=== PATIENT | male | born 1955 | race Hispanic/Latino ===

== ENCOUNTER 2018-08-07 18:35 | Emergency (ER) | payer OTHER, MEDICARE ==
[~2018-08-07 18:35] MED LIST: CLON0.5T12 PO; GEMF600T5 PO; GLYB-228 PO; HYDR-4457 PO; LISI40TA4 PO; OMEGA PO; PREG75 PO; ROSU5TAB PO; [UNRECOGNIZED DRUG - OTHER] PO
[2018-08-07 18:53] LABS: BASOPHILS % (AUTO) 0.3 % (0.0-5.0); EOSINOPHILS % (AUTO) 0.5 % (0.0-8.0); HEMATOCRIT 36.9 % (42-54); LYMPHOCYTES % (AUTO) 10.6 % (21.0-51.0); MEAN CORPUSCULAR HEMOGLOBIN 29.8 pg (27.0-33.0); MEAN CORPUSCULAR VOLUME 87.6 fL (79-99); MONOCYTES % (AUTO) 7.1 % (3.0-13.0); NEUTROPHILS % (AUTO) 81.5 % (40.0-77.0); PLATELET COUNT (AUTO) 188 K/uL (130-400); RED BLOOD CELL COUNT(AUTO) 4.21 MIL/uL (4.50-6.20); RED CELL DISTRIBUTION WIDTH 12.9 % (11.0-15.5); WHITE BLOOD COUNT (AUTO) 7.1 K/uL (4.8-10.8)
[2018-08-07] MEDS ORDERED: SODIUM CHLORIDE 0.9% 1000ML 1,000 ML IV ONE (18:59)
[2018-08-07] MEDS ORDERED: ONDANSETRON HCL 4 MG/2 ML VIAL ONE (19:00)
[2018-08-07] MEDS ORDERED: ACETAMINOPHEN EXTRA STRENGTH 500 MG TABLET ONE (19:01)
[2018-08-07 19:05] LABS: CARBON DIOXIDE 23 mmol/L (21-32); CHLORIDE 104 mmol/L (101-111); CREATININE 0.9 mg/dL (0.5-1.5); GLOMERULAR FILTR. RATE CALC 91 mL/min (>60); GLUCOSE,RANDOM 187 mg/dL (70-105); POTASSIUM 3.5 mmol/L (3.5-5.1); SODIUM SERUM 139 mmol/L (136-145); UREA NITROGEN, BLOOD 15 mg/dL (7-18)
[2018-08-07 19:14] LABS: INR 1.03 (0.85-1.15); PARTIAL THROMBOPLASTIN TIME 29.9 SEC (26.3-35.5); PROTHROMBIN TIME 10.8 SEC (9.6-11.6)
[2018-08-07 19:16] LABS: ALANINE AMINOTRANSFERASE 22 U/L (12-78); ALBUMIN 3.4 g/dL (3.5-5.0); ASPARTATE AMINOTRANSFERASE 16 U/L (10-37); BILIRUBIN,TOTAL 0.4 mg/dL (0.2-1.0); CREATINE KINASE, TOTAL 10 U/L (21-232); MYOGLOBIN 25 ng/mL (10-92); TOTAL PROTEIN, SERUM 6.8 g/dL (6.0-8.3); TROPONIN I < 0.04 ng/mL (0.00-0.06)
[2018-08-07 19:33] LABS: APPEARANCE,URINE Clear (CLEAR); BILIRUBIN,URINE Negative (NEGATIVE); COLOR,URINE Yellow (YELLOW); GLUCOSE, URINE (UA) TRACE mg/dL (NEGATIVE); KETONES,URINE Negative (NEGATIVE); LEUKOCYTE ESTERASE ,URINE Negative (NEGATIVE); NITRATE,URINE Negative (NEGATIVE); OCCULT BLOOD,URINE Negative (NEGATIVE); PROTEIN,URINE Negative (NEGATIVE); UROBILINOGEN,URINE 0.2 mg/dL (0.2-1.0)
[2018-08-07 19:48] LABS: BACTERIA,URINE None Seen /HPF (None Seen); RBC,URINE None Seen /HPF (0-1); SQUAMOUS EPITHELIAL CELL,UR None Seen /HPF (0-2); WBC,URINE 0-1 /HPF (0-1)
== END 2018-08-07 22:20 | disposition home or self-care (01) ==
LOC: EDH 18:35
DX: R50.9 Fever, unspecified (principal); K02.9 Dental caries, unspecified; I10 Essential (primary) hypertension; E78.5 Hyperlipidemia, unspecified; E11.9 Type 2 diabetes mellitus without complications
CPT/HCPCS: 36415; 71045; 80053; 81001; 82550; 83605; 83874; 84484; 85025; 85610; 85730; 87040 ×2; 87088; 87804 ×2; 93005; 96374; 96375; 99285; J2405; J7030

== ENCOUNTER 2019-01-18 06:56 | Day surgery (SDC) | payer OTHER, MEDICARE ==
[2019-01-17 15:33] VITALS: BP 165/73
--- NOTE | 2019-01-17 16:03 | NUR ---
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 OFFERED A BIOMETRICIAN. DID NOT WANT ONE. DAUGHTER IN LAW SIGNS AND WILL BE HERE DOS WHO ALSO SIGNS.
[~2019-01-18] VITALS: Ht 177.8 cm; Wt 91.2 kg
[2019-01-18] VITALS (16 sets, daily range): BP systolic 142–168; BP diastolic 52–82
[2019-01-18] MEDS: CEFAZOLIN SODIUM 1 GM VIAL IVP SCH ×2 (06:00→09:45)
[~2019-01-18 06:56] MED LIST changes: +ATOR10TA69 PO; -CLON0.5T12 PO; +CLON0.5T4 PO; -GLYB-228 PO; +GLYB1TAB32 PO; +HYDR-4064 PO; -HYDR-4457 PO; -OMEGA PO; -ROSU5TAB PO; +TRAM50TA4 PO; -[UNRECOGNIZED DRUG - OTHER] PO
[2019-01-18] MEDS ORDERED: SODIUM CHLORIDE 0.9% 1000ML 1,000 ML IV ONE (07:59)
[2019-01-18] MEDS ORDERED: EPINEPHRINE 1 MG/ML 30ML VIAL IJ ONE (08:03)
[2019-01-18] MEDS ORDERED: ONDANSETRON HCL 4 MG/2 ML VIAL ONE (08:44)
[2019-01-18] MEDS ORDERED: LIDOCAINE PF 2% 5ML ABBOJECT ONE (08:44)
[2019-01-18] MEDS ORDERED: MIDAZOLAM HCL 1 MG/ML 2ML VIAL ONE (08:45)
[2019-01-18] MEDS ORDERED: FENTANYL CITRATE PF 50 MCG/1 ML 2ML VIAL ONE (08:45)
[2019-01-18] MEDS ORDERED: ROCURONIUM 10MG/1ML SYR 10 MG/ML ML ONE ×2 (08:45→10:13)
[2019-01-18] MEDS ORDERED: PROPOFOL 10 MG/ML 20ML VIAL IV ONE (08:45)
[2019-01-18] MEDS ORDERED: ROPIVACAINE 0.5% 5MG/ML 30ML IJ ONE (08:48)
[2019-01-18] MEDS ORDERED: EPHEDRINE SULFATE 50 MG/ML AMPULE ONE (10:13)
[2019-01-18] MEDS ORDERED: LIDOCAINE HCL 4% LTA SOL 4 ML VIAL ONE (12:38)
[2019-01-18] MEDS ORDERED: CEPH500B PO (12:53)
[2019-01-18] MEDS ORDERED: HYDR-4457 PO (12:53)
[2019-01-18] MEDS ORDERED: MELO-108 PO (12:53)
[2019-01-18] MEDS ORDERED: HYDRALAZINE HCL 20 MG/ML VIAL ONE (13:32)
--- NOTE | 2019-01-18 15:00 | NUR ---
PT LEFT VIA WHEELCHAIR WITH , RX SCRIPT GIVEN TO ALONG WITH D/C INSTRUCTION AND F/U APPT. PT HAD ARM SLING ON AND DRESSING WAS DRY AND INTACT, RADIAL PULSES PRESENT. NO COMPLICATION UPON D/C
== END 2019-01-18 15:00 | disposition home or self-care (01) ==
LOC: DAH 06:56 → EDSTATUS 15:00 → DAH 15:00
PROVIDERS: ATTEND Orthopaedic Surgery
DX: M75.111 Incomplete rotator cuff tear or rupture of right shoulder, not specified as traumatic (principal); M25.511 Pain in right shoulder; G89.29 Other chronic pain; M19.011 Primary osteoarthritis, right shoulder; Z79.899 Other long term (current) drug therapy; E11.9 Type 2 diabetes mellitus without complications; I10 Essential (primary) hypertension; E78.00 Pure hypercholesterolemia, unspecified; M17.0 Bilateral primary osteoarthritis of knee; M16.10 Unilateral primary osteoarthritis, unspecified hip; Z83.3 Family history of diabetes mellitus; Z82.49 Family history of ischemic heart disease and other diseases of the circulatory system
CPT/HCPCS: 29824; 29826; 29827; 29828; 64415; 76942; 82948 ×2; A4215; A4221; A4222; A4223; A4565; A4600; A4649 ×6; A4663; A4930; A5120; A6204; C1713 ×3; G0168; J0171; J0360; J0690; J2001; J2250; J2405; J2704; J2795; J3010; J3490; J7030 ×2

== ENCOUNTER → 2020-03-26 | Outpatient (CLI) | payer OTHER ==
[~2020-03-26] MED LIST changes: +CEPH500B PO; +GADODIAMIDE 10 MMOL/20 ML VIAL IV ONE; -GEMF600T5 PO; +GEMF600T89 PO; -HYDR-4064 PO; +HYDR-4457 PO; -LISI40TA4 PO; +LISI40TA9 PO; +MELO-108 PO
== END | disposition home or self-care (01) ==
LOC: RAH 14:47
PROVIDERS: ATTEND Otolaryngology Plastic Surgery within the Head & Neck
DX: H90.3 Sensorineural hearing loss, bilateral (principal); H93.19 Tinnitus, unspecified ear
CPT/HCPCS: 70553; A9579

== ENCOUNTER → 2020-07-09 | Outpatient (CLI) | payer OTHER ==
[~2020-07-09] MED LIST changes: -GADODIAMIDE 10 MMOL/20 ML VIAL IV ONE
== END | disposition home or self-care (01) ==
LOC: RAH 12:56
PROVIDERS: ATTEND Orthopaedic Surgery
DX: S83.241A Other tear of medial meniscus, current injury, right knee, initial encounter (principal); M23.91 Unspecified internal derangement of right knee; M22.41 Chondromalacia patellae, right knee; M22.42 Chondromalacia patellae, left knee; M16.0 Bilateral primary osteoarthritis of hip; M70.61 Trochanteric bursitis, right hip; M67.952 Unspecified disorder of synovium and tendon, left thigh; M25.511 Pain in right shoulder; M75.101 Unspecified rotator cuff tear or rupture of right shoulder, not specified as traumatic; M75.121 Complete rotator cuff tear or rupture of right shoulder, not specified as traumatic; M19.011 Primary osteoarthritis, right shoulder; G89.18 Other acute postprocedural pain; M76.51 Patellar tendinitis, right knee; Z98.890 Other specified postprocedural states; Z79.899 Other long term (current) drug therapy; X58.XXXA Exposure to other specified factors, initial encounter; Y93.89 Activity, other specified; Y92.89 Other specified places as the place of occurrence of the external cause; Y99.8 Other external cause status
CPT/HCPCS: 73721

== ENCOUNTER 2020-08-21 06:25 | Day surgery (SDC) | payer OTHER ==
[2020-08-15 13:13] LABS: BASOPHILS % (AUTO) 0.9 % (0.0-5.0); EOSINOPHILS % (AUTO) 4.2 % (0.0-8.0); HEMATOCRIT 44.4 % (42-54); LYMPHOCYTES % (AUTO) 30.3 % (21.0-51.0); MEAN CORPUSCULAR HEMOGLOBIN 29.5 pg (27.0-33.0); MEAN CORPUSCULAR HGB CONC 32.7 g/dL (32.0-36.0); MEAN CORPUSCULAR VOLUME 90.4 fL (79-99); MONOCYTES % (AUTO) 7.3 % (3.0-13.0); PLATELET COUNT (AUTO) 296 K/uL (130-400); RED BLOOD CELL COUNT(AUTO) 4.91 MIL/uL (4.50-6.20); RED CELL DISTRIBUTION WIDTH 12.9 % (11.0-15.5); WHITE BLOOD COUNT (AUTO) 6.5 K/uL (4.8-10.8)
[2020-08-15 13:27] LABS: CREATININE 0.9 mg/dL (0.5-1.5); POTASSIUM 4.4 mmol/L (3.5-5.1)
[2020-08-20 16:10] VITALS: BP 164/60
[~2020-08-21] VITALS: Ht 177.8 cm; Wt 90.7 kg
[2020-08-21] VITALS (15 sets, daily range): BP systolic 129–149; BP diastolic 60–75
[~2020-08-21 06:25] MED LIST changes: -CEPH500B PO; -CLON0.5T4 PO; -HYDR-4457 PO; -MELO-108 PO; -TRAM50TA4 PO
[2020-08-21] MEDS ORDERED: CEFAZOLIN SODIUM 1 GM VIAL ONE (07:11)
[2020-08-21] MEDS ORDERED: LIDOCAINE PF 100MG/5ML (2%) SYRINGE 5ML ONE ×2 (07:58→08:00)
[2020-08-21] MEDS ORDERED: SUCCINYLCHOLINE CHLORIDE 20 MG/ML 10 ML VIAL ONE ×2 (07:58→08:00)
[2020-08-21] MEDS ORDERED: GLYCOPYRROLATE 1 MG/5 ML SYRINGE ONE (07:59)
[2020-08-21] MEDS ORDERED: DEXAMETHASONE SOD PHOSPHATE 10MG/ML 1ML VIAL ONE (07:59)
[2020-08-21] MEDS ORDERED: NEOSTIGMINE 5MG/5ML SYR IV ONE (07:59)
[2020-08-21] MEDS ORDERED: ONDANSETRON 4MG INJ ONE (07:59)
[2020-08-21] MEDS ORDERED: MIDAZOLAM HCL 1 MG/ML 2ML VIAL ONE (07:59)
[2020-08-21] MEDS ORDERED: PROPOFOL 10 MG/ML 20ML VIAL IV ONE (07:59)
[2020-08-21] MEDS ORDERED: FENTANYL CITRATE PF 50 MCG/1 ML 2ML VIAL ONE ×2 (08:00→08:50)
[2020-08-21] MEDS ORDERED: ROCURONIUM 10MG/1ML SYR 10 MG/ML ML ONE (08:00)
[2020-08-21] MEDS ORDERED: CEFAZOLIN SODIUM 1 GM VIAL IVP ONE (08:23)
[2020-08-21] MEDS ORDERED: MEPERIDINE-PF 25 MG/ML SYG ONE ×2 (08:40→10:06)
[2020-08-21] MEDS: NACL 0.9% 1000ML 1,000 ML IV ONE ×2 (08:48→09:42)
[2020-08-21] MEDS ORDERED: ACET1TAB25 PO (09:50)
[2020-08-21] MEDS ORDERED: CEPH500B PO (09:50)
== END 2020-08-21 11:20 | disposition home or self-care (01) ==
LOC: DAH 06:25
PROVIDERS: ATTEND Orthopaedic Surgery
DX: M23.351 Other meniscus derangements, posterior horn of lateral meniscus, right knee (principal); Z20.822 Contact with and (suspected) exposure to COVID-19; M23.321 Other meniscus derangements, posterior horn of medial meniscus, right knee; M22.41 Chondromalacia patellae, right knee; I10 Essential (primary) hypertension; E11.9 Type 2 diabetes mellitus without complications; M19.90 Unspecified osteoarthritis, unspecified site; E78.00 Pure hypercholesterolemia, unspecified; Z98.890 Other specified postprocedural states; Z79.899 Other long term (current) drug therapy
CPT/HCPCS: 29881; 29882; 36415; 80048; 82948; 85025; 87635; A4215; A4221; A4222; A4223; A4606; A4649 ×3; A4663; A4930 ×2; A5120; A6223; C1713; C9803; J0330 ×2; J0690 ×2; J1100; J2001 ×2; J2175 ×2; J2250; J2405; J2704; J2710; J3010 ×2; J3490; J7030; J7120

== ENCOUNTER → 2024-04-28 | Outpatient (CLI) | payer MEDICARE ==
[~2024-04-28] MED LIST changes: +AEC81 PO; -ATOR10TA69 PO; +ATOR40TA69 PO; +CYCL5TAB3 PO; +GLYB-173 PO; -GLYB1TAB32 PO; +Isosorbide Mono 60MG Sr Tab PO; +METO25 PO; +NIFE-40 PO; +PANT20TA18 PO; +TICA90TA PO
--- NOTE | 2024-05-04 23:35 | HMCSR ---
APPROVED REPORT EXAM: Two-dimensional and M-mode echocardiogram with Doppler and color Doppler. INDICATION ICD: I25.10 Atherosclerotic heart disease of [place] coronary artery without angina pectoris 2D Dimensions RVDd3.9 cmLVEF(%)55.7 (>50%)LVED Vol(simp.)128.0 mL IVSd1.2 (0.7-1.1cm)FS(%)29 %LVES Vol(simp.)55.0 mL LVDd5.1 (3.8-5.6cm)Ao Root(2D)3.5 (2.0-3.7cm)LVEF(%, simp.)57 % PWd1.1 (0.7-1.1cm)LVOT diam2.1 (1.8-2.4cm)LA ESV INDEX (BP)37.21 mL/m2 LVDs3.6 (2.5-4.0cm)IVC diam2.1 cm Aortic Valve AoV Vmax1.4 m/Melva Peak GR8.1 mmHgLVOT Vmax1.0 m/s AoV VTI0.3 mAo Mean GR4.2 mmHgLVOT VTI0.21 m GARRISON (VMAX)2.5 cm2Al P1/2T550 msAVA (VTI) 2.5 cm2 Mitral Valve MV E Vmax70.5 cm/sDECEL Nqpd610 ms MV A Vmax81.1 cm/sP 1/2 T38 ms E/A ratio0.9MVA (PHT)5.8 cm2 MR Max PG64 mmHg TDI E/E' [id number]/E' [id number] Pulmonary Valve PV Vmax1.1 m/sPV VTI0.22 mPV Mean GR2 mmHg PV Peak GR5.2 mmHg Tricuspid Valve TR Vmax2.3 m/sRAP (EST) 8 [id number] mmHg TR Peak GR22.1 mmHg Left Ventricle The left ventricle structure is normal in size. No regional wall motion abnormalities noted. Mild con centric left ventricular hypertrophy. Left ventricular systolic function is normal, estimated LVEF is 55 to 60%. Stage I diastolic dysfunction. Right Ventricle The right ventricle is normal size. The right ventricular systolic function is normal. Atria The left atrium is mildly dilated, 37 mL/m. The right atrium is dilated. Aortic Valve Aortic valve is trileaflet. The leaflets are mildly thickened and calcified. Mild aortic regurgitatio n. There is no aortic valvular stenosis. Mitral Valve The mitral valve is normal in structure and function. The leaflets are mildly thickened and calcified . Trace mitral regurgitation. There is no mitral valve stenosis. Tricuspid Valve The tricuspid valve leaflets appear normal. Trace tricuspid regurgitation. RVSP is 22 mmHg. Pulmonic Valve Pulmonic valve is not well visualized. Great Vessels The aortic root is normal in size. The IVC is normal in size and collapses >50% with inspiration. Pericardium No pericardial effusion. Conclusion The left atrium is mildly dilated, 37 mL/m. The right atrium is dilated. Mild concentric left ventricular hypertrophy. No regional wall motion abnormalities noted. Left ventricular systolic function is normal, estimated LVEF is 55 to 60%. Stage I diastolic dysfunction. Mild aortic regurgitation. Trace mitral regurgitation. Trace tricuspid regurgitation. PASP is 25 mmHg. No pericardial effusion
== END | disposition home or self-care (01) ==
LOC: SHCH 09:57
PROVIDERS: ATTEND Internal Medicine Cardiovascular Disease
DX: I08.0 Rheumatic disorders of both mitral and aortic valves (principal); I25.10 Atherosclerotic heart disease of native coronary artery without angina pectoris
CPT/HCPCS: 93306